=== PATIENT | female | born 1970 | race Caucasian/White ===

== ENCOUNTER 2020-06-05 15:59 | Inpatient (IN) | payer BC, OTHER ==
[~2020-06-05] VITALS: Ht 165.1 cm; Wt 85.5 kg
[~2020-06-05 15:59] MED LIST: SIMV20TA19 PO; VENL75CA PO
--- NOTE | 2020-06-05 17:52 | NUR ---
TAN[employer]ED [employer]AIGHT[employer]: PT TO ROOM FROM AN[facility] GUTIERREZ. PT TO BR TO ATTEMPT TO PROVIDE URINE SPECIMAN.
--- NOTE | 2020-06-05 18:19 | NUR ---
LABS AND UA SENT.
[2020-06-05 18:26] LABS: BASOPHILS # (AUTO) 0.04 x10^3/uL (0-0.1); BASOPHILS % (AUTO) 0 % (0-1); EOSINOPHILS # (AUTO) 0.07 x10^3/uL (0-0.4); EOSINOPHILS % (AUTO) 1 % (1-7); LYMPHOCYTES # (AUTO) 1.69 x10^3/uL (1-3.4); LYMPHOCYTES % (AUTO) 13 % (22-44); MD NO; MEAN CORPUSCULAR HEMOGLOBIN 30.9 pg (27.0-34.8); MEAN CORPUSCULAR HGB CONC 33.2 g/dL (32.4-35.8); MEAN PLATELET VOLUME 9.3 fL (7.4-10.4); MONOCYTES # (AUTO) 0.91 x10^3/uL (0.2-0.8); MONOCYTES % (AUTO) 7 % (2-9); NEUTROPHILS # (AUTO) 9.96 x10^3/uL (1.8-6.8); NEUTROPHILS % (AUTO) 79 % (42-75); PLATELET COUNT 151 x10^3/uL (130-400); RED BLOOD COUNT 4.72 x10^6/uL (3.82-5.3); RED CELL DISTRIBUTION WIDTH 13.3 % (9.6-15.2)
[2020-06-05 18:35] LABS: HCG UR SG 1.016 (1.003-1.030); MICROSCOPIC NOT IND
[2020-06-05 18:38] LABS: ALANINE AMINOTRANSFERASE 173 U/L (12-78); ANION GAP 4 mmol/L (5-15); CALCIUM 8.3 mg/dL (8.5-10.1); CHLORIDE 108 mmol/L (98-107); CREATININE 0.97 mg/dL (0.55-1.02)
[2020-06-05 18:40] LABS: ALKALINE PHOSPHATASE 105 U/L (45-117); BILIRUBIN,TOTAL 0.6 mg/dL (0.2-1.0); TOTAL PROTEIN 6.9 g/dL (6.4-8.2)
[2020-06-05] MEDS ORDERED: MORPHINE SULFATE 4 MG/ML, 1ML ONE (18:56)
[2020-06-05] MEDS ORDERED: ONDANSETRON 2MG/ML, 2ML ONE (18:56)
[2020-06-05] MEDS ORDERED: ONDANSETRON 2MG/ML, 2ML IVPush ONE (19:00)
[2020-06-05] MEDS ORDERED: SODIUM CHLORIDE 0.9% 1,000ML IVBOLUS ONE (19:00)
--- NOTE | 2020-06-05 19:00 | NUR ---
Received report from Cody BYRD.
[2020-06-05] MEDS: MORPHINE SULFATE 4 MG/ML, 1ML IVPush PRN (19:04)
--- NOTE | 2020-06-05 19:09 | NUR ---
PIV established, medicated per eMAR, pt being taking to CT at this time
[2020-06-05] MEDS ORDERED: OMNIPAQUE 350 MG/ML, 100ML BOTTLE ONE (19:21)
[2020-06-05] MEDS ORDERED: SODIUM CHLORIDE 0.9% 1,000 ML IV ONE (20:40)
[2020-06-05] MEDS ORDERED: MORPHINE SULFATE 4 MG/ML, 1ML IVPush PRN (21:00)
[2020-06-05] MEDS ORDERED: ONDANSETRON 2MG/ML, 2ML IVPush PRN (21:00)
[2020-06-05] MEDS ORDERED: TRAZ-96 PO ×2 (23:12→23:22)
[2020-06-05] MEDS ORDERED: HYDR200T72 PO (23:23)
--- NOTE | 2020-06-05 23:37 | NUR ---
REPORT CALLED TO TRACY BYRD TO ASSUME CARE UPON TRANSFER TO [facility]
[2020-06-06] MEDS: MORPHINE SULFATE 4 MG/ML, 1ML IVPush PRN (00:49)
[2020-06-06 00:55] VITALS: BP 126/67
[2020-06-06] MEDS ORDERED: hydrALAzine 20 MG/ML, 1ML IVPush PRN (01:00)
[2020-06-06 02:09] VITALS: BP 126/76
[2020-06-06] MEDS: LACTATED RINGERS 1,000 ML IV SCH ×3 (04:53→22:39)
[2020-06-06 05:06] LABS: ANION GAP 5 mmol/L (5-15); CALCIUM 8.2 mg/dL (8.5-10.1); CHLORIDE 111 mmol/L (98-107); CREATININE 0.84 mg/dL (0.55-1.02)
[2020-06-06 05:11] LABS: BASOPHILS # (AUTO) 0.03 x10^3/uL (0-0.1); BASOPHILS % (AUTO) 0 % (0-1); EOSINOPHILS # (AUTO) 0.17 x10^3/uL (0-0.4); EOSINOPHILS % (AUTO) 2 % (1-7); LYMPHOCYTES # (AUTO) 1.11 x10^3/uL (1-3.4); LYMPHOCYTES % (AUTO) 13 % (22-44); MD NO; MEAN CORPUSCULAR HEMOGLOBIN 30.7 pg (27.0-34.8); MEAN CORPUSCULAR VOLUME 93.1 fL (80-100); MEAN PLATELET VOLUME 9.6 fL (7.4-10.4); MONOCYTES # (AUTO) 0.65 x10^3/uL (0.2-0.8); MONOCYTES % (AUTO) 7 % (2-9); NEUTROPHILS # (AUTO) 6.83 x10^3/uL (1.8-6.8); NEUTROPHILS % (AUTO) 78 % (42-75); PLATELET COUNT 133 x10^3/uL (130-400); RED CELL DISTRIBUTION WIDTH 13.4 % (9.6-15.2)
[2020-06-06] MEDS: ONDANSETRON 2MG/ML, 2ML IVPush PRN ×3 (07:31→22:39)
[2020-06-06] MEDS: morphine SULFATE 10 MG/ML, 1ML IVPush PRN ×3 (07:43→22:41)
[2020-06-06 08:38] VITALS: BP 120/78
[2020-06-06 13:09] VITALS: BP 131/79
[2020-06-06 20:37] VITALS: BP 128/80
[2020-06-06] MEDS: VENLAFAXINE 75 MG CAP ER PO SCH (22:38)
[2020-06-07 01:43] VITALS: BP 140/70
[2020-06-07 04:09] LABS: CLOSTRIDIUM DIFFICILE ANTIGEN NEGATIVE; CLOSTRIDIUM DIFFICILE TOXIN NEGATIVE (Negative)
[2020-06-07] MEDS: VENLAFAXINE 75 MG CAP ER PO SCH ×2 (05:12→22:17)
[2020-06-07] MEDS: morphine SULFATE 10 MG/ML, 1ML IVPush PRN ×2 (06:02→09:33)
[2020-06-07] MEDS: LACTATED RINGERS 1,000 ML IV SCH ×3 (06:03→22:19)
[2020-06-07] MEDS: ONDANSETRON 2MG/ML, 2ML IVPush PRN ×4 (06:04→22:19)
[2020-06-07 07:32] VITALS: BP 127/84
[2020-06-07] MEDS ORDERED: VENLAFAXINE 75 MG CAP ER PO SCH (09:00)
[2020-06-07] MEDS ORDERED: PROCHLORPERAZINE 5 MG/ML, 2ML IVPush PRN (11:30)
[2020-06-07] MEDS: BUTALBIT/ACETAMIN/CAFF/CODEINE CAPSULE PO PRN ×3 (11:31→22:18)
[2020-06-07 12:03] LABS: ALBUMIN 3.8 g/dL (3.4-5.0); ANION GAP 8 mmol/L (5-15); CALCIUM 8.3 mg/dL (8.5-10.1); CHLORIDE 105 mmol/L (98-107); CREATININE 0.92 mg/dL (0.55-1.02)
[2020-06-07 12:11] VITALS: BP 145/84
[2020-06-07 12:11] LABS: ALANINE AMINOTRANSFERASE 1072 U/L (12-78); ALKALINE PHOSPHATASE 306 U/L (45-117); BILIRUBIN,TOTAL 2.1 mg/dL (0.2-1.0); TOTAL PROTEIN 6.7 g/dL (6.4-8.2)
[2020-06-07 19:04] VITALS: BP 138/89
[2020-06-07 20:06] VITALS: BP 150/90
[2020-06-08 01:28] VITALS: BP 157/99
[2020-06-08 03:35] LABS: ALANINE AMINOTRANSFERASE 995 U/L (12-78); ALBUMIN 3.2 g/dL (3.4-5.0); ANION GAP 9 mmol/L (5-15); CALCIUM 8.3 mg/dL (8.5-10.1); CHLORIDE 105 mmol/L (98-107)
[2020-06-08 03:38] LABS: ALKALINE PHOSPHATASE 332 U/L (45-117); BILIRUBIN,TOTAL 3.1 mg/dL (0.2-1.0); CREATININE 0.81 mg/dL (0.55-1.02); TOTAL PROTEIN 6.1 g/dL (6.4-8.2)
[2020-06-08] MEDS: ONDANSETRON 2MG/ML, 2ML IVPush PRN ×2 (05:53→16:47)
[2020-06-08] MEDS: LACTATED RINGERS 1,000 ML IV SCH ×3 (05:53→21:00)
[2020-06-08 07:22] VITALS: BP 147/88
[2020-06-08] MEDS: BUTALBIT/ACETAMIN/CAFF/CODEINE CAPSULE PO PRN ×2 (11:01→16:58)
[2020-06-08 12:23] VITALS: BP 147/95
[2020-06-08 19:30] VITALS: BP 128/88
[2020-06-08] MEDS ORDERED: ACETAMINOPHEN 325 MG TABLET ONE (19:47)
[2020-06-08] MEDS ORDERED: ACETAMINOPHEN 325 MG TABLET PO PRN (20:00)
[2020-06-08] MEDS: VENLAFAXINE 75 MG CAP ER PO SCH (21:18)
[2020-06-09] MEDS: BUTALBIT/ACETAMIN/CAFF/CODEINE CAPSULE PO PRN ×3 (00:12→22:17)
[2020-06-09 02:00] VITALS: BP 114/81
[2020-06-09 04:52] LABS: BASOPHILS # (AUTO) 0.03 x10^3/uL (0-0.1); BASOPHILS % (AUTO) 0 % (0-1); EOSINOPHILS # (AUTO) 0.17 x10^3/uL (0-0.4); EOSINOPHILS % (AUTO) 2 % (1-7); LYMPHOCYTES # (AUTO) 1.66 x10^3/uL (1-3.4); LYMPHOCYTES % (AUTO) 22 % (22-44); MD NO; MEAN CORPUSCULAR HEMOGLOBIN 30.8 pg (27.0-34.8); MEAN CORPUSCULAR VOLUME 93.2 fL (80-100); MEAN PLATELET VOLUME 9.8 fL (7.4-10.4); MONOCYTES # (AUTO) 0.53 x10^3/uL (0.2-0.8); MONOCYTES % (AUTO) 7 % (2-9); NEUTROPHILS # (AUTO) 5.23 x10^3/uL (1.8-6.8); NEUTROPHILS % (AUTO) 69 % (42-75); PLATELET COUNT 133 x10^3/uL (130-400); RED BLOOD COUNT 4.59 x10^6/uL (3.82-5.3); RED CELL DISTRIBUTION WIDTH 13.6 % (9.6-15.2)
[2020-06-09 05:04] LABS: CHLORIDE 109 mmol/L (98-107)
[2020-06-09 05:12] LABS: ALANINE AMINOTRANSFERASE 709 U/L (12-78); ALKALINE PHOSPHATASE 323 U/L (45-117); ANION GAP 5 mmol/L (5-15); BILIRUBIN,TOTAL 1.4 mg/dL (0.2-1.0); CALCIUM 8.3 mg/dL (8.5-10.1); CREATININE 0.78 mg/dL (0.55-1.02); TOTAL PROTEIN 5.8 g/dL (6.4-8.2)
[2020-06-09 07:20] VITALS: BP 143/97
[2020-06-09 14:10] VITALS: BP 129/85
[2020-06-09] MEDS: ONDANSETRON 2MG/ML, 2ML IVPush PRN (20:10)
[2020-06-09] MEDS: VENLAFAXINE 75 MG CAP ER PO SCH (20:11)
[2020-06-09 21:17] VITALS: BP 139/90
[2020-06-10 00:15] VITALS: BP 141/86
[2020-06-10] MEDS: ONDANSETRON 2MG/ML, 2ML IVPush PRN ×2 (04:28→08:12)
[2020-06-10 05:15] LABS: ALANINE AMINOTRANSFERASE 581 U/L (12-78); ALBUMIN 3.1 g/dL (3.4-5.0); ANION GAP 9 mmol/L (5-15); CALCIUM 8.5 mg/dL (8.5-10.1); CHLORIDE 106 mmol/L (98-107); CREATININE 0.85 mg/dL (0.55-1.02)
[2020-06-10 05:17] LABS: ALKALINE PHOSPHATASE 336 U/L (45-117); BILIRUBIN,TOTAL 0.7 mg/dL (0.2-1.0); TOTAL PROTEIN 6.2 g/dL (6.4-8.2)
[2020-06-10 07:58] VITALS: BP 142/91
[2020-06-10] MEDS ORDERED: ONDA4TAB7 PO (09:33)
== END 2020-06-10 12:30 | disposition home or self-care (01) | DRG 440 ==
LOC: ED 18:50 → EDIP 20:40 → 4NE 23:58 → 3N 06-09 14:54 → DCLOUNGE 06-10 12:25
PROVIDERS: ADMIT Family Medicine; ATTEND Hospitalist
DX: K85.20 Alcohol induced acute pancreatitis without necrosis or infection (principal); F10.10 Alcohol abuse, uncomplicated; F12.90 Cannabis use, unspecified, uncomplicated; J30.2 Other seasonal allergic rhinitis; K58.9 Irritable bowel syndrome, unspecified; M06.9 Rheumatoid arthritis, unspecified; M54.30 Sciatica, unspecified side; F32.9 Major depressive disorder, single episode, unspecified; K57.90 Diverticulosis of intestine, part unspecified, without perforation or abscess without bleeding; K64.9 Unspecified hemorrhoids; R74.0 Nonspecific elevation of levels of transaminase and lactic acid dehydrogenase [LDH]; M19.90 Unspecified osteoarthritis, unspecified site; D72.829 Elevated white blood cell count, unspecified; Z79.899 Other long term (current) drug therapy; Z90.49 Acquired absence of other specified parts of digestive tract; Z88.2 Allergy status to sulfonamides; Z88.8 Allergy status to other drugs, medicaments and biological substances; Z88.0 Allergy status to penicillin; Z80.8 Family history of malignant neoplasm of other organs or systems; Z84.89 Family history of other specified conditions
CPT/HCPCS: 36415; 74177; 80048; 80053; 80074; 80307; 81003; 81025; 83690; 85025; 87324; 96374; 99285; G0378; J2405; Q9967; J2270; J7030; J7120